=== PATIENT | male | born 1945 | race Caucasian/White ===

== ENCOUNTER 2020-03-25 15:56 | Inpatient (IN) | payer MEDICARE, OTHER ==
[2020-03-25] MEDS ORDERED: Acetaminophen 500 MG TAB ONE (16:18)
[2020-03-25 16:32] LABS: Mean Corpuscular HGB CONC 32.7 g/dL (32.0-36.0); Mean Corpuscular Hemoglobin 29.4 pg (27.0-31.0); Mean Corpuscular Volume 89.9 fL (78.0-98.0); Mean Platelet Volume 9.5 fL (7.4-10.4); Platelet Count 173 thou/uL (130-400); RBC Distribution Width 12.8 % (11.5-14.5); Red Blood Cell (RBC) Count 4.77 mill/uL (4.70-6.10); White Blood Cell (WBC) Count 9.2 thou/uL (4.8-10.8)
[2020-03-25 16:53] LABS: Band 21 % (5-11); Lymphocytes 4 % (21-51); MDiff Complete? YES; Monocytes 1 % (0-10); Neutrophil 74 % (42-75); Platelet Morphology Comment Appears Adequate; Polychromasia SLIGHT = 2-3 cells (100X) (0-2/hpf)
--- NOTE | 2020-03-25 17:02 | RAD ---
CHEST 1 VIEW PORTABLE: Date: 03/25/2020 HISTORY: Chest pain. FINDINGS: Heart size is within normal limits. The lungs are clear. No confluent pneumonia, overt edema, or pleu ral effusion. IMPRESSION: No significant acute intrathoracic disease. POS: RRE
[2020-03-25 17:16] LABS: Bacteria/HPF 4+ HPF (None Seen); Bilirubin Negative (Negative); Blood, Urine Negative (Negative); Clarity Clear (Clear); Glucose, Urine (Dipstick) Normal (Negative); Ketone, Urine Negative (Negative); Leukocyte 75 Leu/uL (Negative); Nitrite Negative (Negative); Protein, Urine (Dipstick) Negative (Neg-Trace); Specific Gravity, Urine 1.016 (1.002-1.036); Squamous Epithelial 0-3 HPF (0-3); pH, Urine 6.5 (5.0-9.0)
[2020-03-25 17:22] LABS: ALT (SGPT) 23 U/L (8-55); AST (SGOT) 22 U/L (5-34); Albumin 4.2 g/dL (3.4-4.8); Alkaline Phosphatase 91 U/L (40-110); Anion Gap 12 mmol/L (10-20); BUN (Urea Nitrogen) 14 mg/dL (8.4-25.7); Bilirubin, Total 0.5 mg/dL (0.2-1.2); Calc. Creatinine Clearance 0 mL/min (70-130); Calcium 9.1 mg/dL (7.8-10.44); Carbon Dioxide 25 mmol/L (23-31); Chloride 104 mmol/L (98-107); Estimated GFR-MDRD 45; Globulin 3.5 g/dL (2.4-3.5); Glucose 119 mg/dL (83-110); Potassium 3.8 mmol/L (3.5-5.1); Protein, Total 7.7 g/dL (5.8-8.1); Sodium 137 mmol/L (136-145)
[2020-03-25] MEDS ORDERED: cefTRIAXone\\ROCEPHIN 2 GM VIAL ONE (17:30)
[2020-03-25 17:56] LABS: SARS-CoV-2 NAA Rapid Test Not Detected (NotDetected)
--- NOTE | 2020-03-25 18:38 | PDOC.FPRHP ---
- History of Present Illness Chief Complaint: AMS, fever/chills History of Present Illness: Jarod is a 74M brought by EMS after a family called them allegedly because he was confused. According to Jarod, his sister called them because he was unbalanced when he stood up. He is always unbalanced d/t L hip problems and denies this time being any different. He denies lightheadedness or syncope. Per the patient he noticed a chill this morning d/t his sister "keeping the house cold". He was unaware he had a fever, he denies chills prior to today and denies any other sx. He was febrile, tachycardiac, tachypneic and had 21% bands on CBC so he meets sepsis criteria. UA on admission showed leuks, bacteria, and WBCs/RBCs, so it is suspected UTI is the cause of the sepsis. He denies dysuria/ hematuria/foul odor/abnormal appearance of urine. He endorses polyuria but denies polydipsia. He has never had a UTI before. He is not ttp of abdomen/ suprapubic region, no CVA tenderness, denies back pain. Cr was 1.5 and we have no baseline. BUN was 14 so it appears the KENYA is not pre-renal or acute. LA of 3.4. Vitals improved with 3L bolus of fluids he was given in the ED. He was given 2g Rocephin in the ED. He last saw a doctor 15 yrs ago. He denies any PMH. EKG showed sinus tachy with QTc prolongation and T wave inversion in V1 only. He appears to have limited health literacy and is slow in speech, unsure if this is his baseline. A&O x3 - Allergies/Adverse Reactions Allergies Allergy/AdvReac Type Severity Reaction Status Date / Time Penicillins Allergy Verified 03/25/20 21:07 - History PMHx: Denies PSHx: Denies FHx: Mom DM, older bro colon cancer in 60s. No colonoscopy Social: chewed tobacco for a few yrs last about 11 yrs. Denies EtOH/drugs. - Review of Systems General: reports: fever/chills. denies: fatigue Eyes: denies: vision changes ENT: denies: nasal congestion Respiratory: denies: cough, shortness of breath Cardiovascular: denies: chest pain, palpitation, edema Gastrointestinal: denies: vomiting, diarrhea, abdominal pain Genitourinary: reports: polyuria. denies: dysuria Skin: denies: rashes, lesions Musculoskeletal: denies: pain Neurological: denies: syncope, weakness - Vital signs BP: 178/100, MAP: 126, Pulse: 129, Resp: 40, Temp: 102.2 (Oral), Pain: 0, O2 sat : 99 on (Room Air), Time: 03/25/2020 16:01. BP: 144/72, MAP: 96, Pulse: 112, Resp: 24, Temp: 100.7 (Oral), Pain: 0, O2 sat: 97 on (Room Air), Time: 03/25/2020 18:22 Max T 103.1 - Physical Exam Constitutional: NAD, awake, alert and oriented, well developed HEENT: normocephalic and atraumatic, EOMI, grossly normal vision, grossly normal hearing Neck: supple, FROM Chest: no lesions Heart: RRR, normal S1/S2, no edema Lungs: CTAB, no respiratory distress Abdomen: soft, non-tender, bowel sounds present, no masses/distention Musculoskeletal: normal structure, normal tone, ROM grossly normal Neurological: no focal deficit Heme/Lymphatic: no unusual bruising or bleeding Psychiatric: normal mood and affect -Psychiatric: Slow in speech and poor health literacy FMR H&P: Results - Labs Result Diagrams: 03/26/20 05:03 03/25/20 16:49 Lab results: WBC 9.2 thou/uL (4.8-10.8) 03/25/20 16:07 Hgb 14.0 g/dL (14.0-18.0) 03/25/20 16:07 Hct 42.9 % (42.0-52.0) 03/25/20 16:07 MCV 89.9 fL (78.0-98.0) 03/25/20 16:07 Plt Count 173 thou/uL (130-400) 03/25/20 16:07 Band Neuts % (Manual) 21 % (5-11) H 03/25/20 16:07 Sodium 137 mmol/L (136-145) 03/25/20 16:49 Potassium 3.8 mmol/L (3.5-5.1) 03/25/20 16:49 Chloride 104 mmol/L (98-107) 03/25/20 16:49 Carbon Dioxide 25 mmol/L (23-31) 03/25/20 16:49 BUN 14 mg/dL (8.4-25.7) 03/25/20 16:49 Creatinine 1.54 mg/dL (0.7-1.3) H 03/25/20 16:49 Glucose 119 mg/dL (83-110) H 03/25/20 16:49 Lactic Acid 3.4 mmol/L (0.5-2.2) H 03/25/20 16:07 Calcium 9.1 mg/dL (7.8-10.44) 03/25/20 16:49 Total Bilirubin 0.5 mg/dL (0.2-1.2) 03/25/20 16:49 AST 22 U/L (5-34) 03/25/20 16:49 ALT 23 U/L (8-55) 03/25/20 16:49 Alkaline Phosphatase 91 U/L (40-110) 03/25/20 16:49 Serum Total Protein 7.7 g/dL (5.8-8.1) 03/25/20 16:49 Albumin 4.2 g/dL (3.4-4.8) 03/25/20 16:49 Urine Ketones Negative mg/dL (Negative) 03/25/20 16:21 Urine Blood Negative (Negative) 03/25/20 16:21 Urine Nitrite Negative (Negative) 03/25/20 16:21 Ur Leukocyte Esterase 75 Joe/uL (Negative) A 03/25/20 16:21 Urine RBC 4-6 HPF (0-3) A 03/25/20 16:21 Urine WBC 11-20 HPF (0-3) A 03/25/20 16:21 Ur Squamous Epith Cells 0-3 HPF (0-3) 03/25/20 16:21 Urine Bacteria 4+ HPF (None Seen) A 03/25/20 16:21 FMR H&P: A/P - Plan Sepsis 2/2 UTI - Meets sepsis criteria: AMS, T 103.1, P 129, RR 40, normal WBCs but 21% bands - SBP 177 - not septic shock - UA pos leuks, bacteria, WBCs/RBCs - Trop 0.027. Will repeat - LA 3.4. Will repeat - UCx, BCx ordered - Received 2g Rocephin and 30mL/kg bolus in ED. Continue Rocephin SL for now and place on heart healthy diet - Prostate smooth and on-tender on PRIYA - Postvoid residual volume 87mL - Renal US ordered to look for hydronephrosis/stones - Lipid panel, A1c, procal ordered - Repeat CBC, BMP in am - Consider CT abdomen/pelvis if cause remains unknown KENYA vs. CKD - Cr 1.5, baseline unknown - BUN 14 - likely chronic - Received 30mL/kg bolus in ED. SL for now - BMP in am HTN - SBP 177 on admission - Down to 144 with fluid bolus - Continue to monitor Disposition: inpt med DVT Ppx: Lovenox 30mg Diet: Heart healthy Abx: Rocephin 2g Code: Full FMR H&P: Upper Level - Plan Date/Time: 03/25/20 6816 I, [Cassidy Givens], have evaluated this patient and agree with findings/plan as outlined by kinesiology internship resident. Pertinent changes/additions are listed here. 74 yo M with no PMH admitted for sepsis 2/2 UTI. Brought in by EMS after family said he was confused & sick. Patient denies dysuria but reports fevers, chills. No n/v/d. Producing urine. Was found to be tachycardic, tachypneic (but non hypoxic) and febrile to 103F in the ER. Given 3L NS and 2g rocephin and 1g Tylenol. Patient reports aside from feeling "small chills" he is doing well. No pain. No prior hx of UTIs. No recent urinary symptoms or incontinence but does report some hesitancy. AVSS PE: Gen- NAD, resting comfortably CV- tachycardic, no murmurs Resp- CTAB, no respiratory distress Back- No CVA tenderness Extrem- Cap refill <2 seconds, good turgor Rectal- No protate tenderness on palpation WBC 9.2, 21% bands UA: +LE, bacteria, WBCs #. Sepsis 2/2 UTI -Tachycardic, febrile, tachypneic- UA: +LE, bacteria, WBCs -s/p 30cc/kg bolus and 2g rocephin in ER -Continue 2grocephin, pending BCx/UCx -BPs stable, clinically appears, well-admit to medical/inpt -Consider CT Abd/Pelvis if clinically and renally not improving tomorrow -Supect underlying BPH, will check PVR -Not circumcised but no prior hx of UTIs #. Complicated UTI -See above #. KENYA vs. CKD -Cr 1.52, gfr 45, BUN/Cr <20 -Not anuric, likely from UTI -S/P fluids- Repeat BMP with AM labs #. Lactic acidosis -3.4, given 3L fluids, repeat #. Indeterminate troponin -0.027, EKG with no acute changes, no chest pain -Trend troponins Admit: medical/Inpatient DVT ppx: Lovenox GI ppx: not indicated Abx: Rocephin 2g Fluids: LR 140 Addendum - Attending - Attending Attestation Date/Time: 03/26/20 1975 I personally evaluated the patient and discussed the management with Dr. Caitlyn Levin last night. I agree with the History, Examination, Assessment and Plan documented above with any addition or exceptions noted below.
[2020-03-25 19:11] LABS: Lactic Acid 2.2 mmol/L (0.5-2.2)
[2020-03-25 20:59] VITALS: BMI 30.4
[2020-03-25] MEDS ORDERED: Acetaminophen 325 MG TAB PO PRN (21:01)
[2020-03-25 23:13] LABS: Hemoglobin A1c 5.4 % (4.0-6.0)
[2020-03-26] MEDS: Lactated Ringer's 1,000 ML IV SCH ×2 (00:19→08:37)
[2020-03-26 05:57] LABS: #Lymphocytes 1.5 thou/uL (1.20-3.40); #Monocytes 1.1 thou/uL (0.11-0.59); #Neutrophils 12.5 thou/uL (1.40-6.50); %Basophils 0.2 % (0.0-1.0); %Eosinophils 0.3 % (0.0-10.0); %Lymphocytes 9.7 % (21.0-51.0); %Neutrophils 82.8 % (42.0-75.0); Hemoglobin 12.4 g/dL (14.0-18.0); Mean Corpuscular HGB CONC 33.1 g/dL (32.0-36.0); Mean Corpuscular Volume 90.7 fL (78.0-98.0); Mean Platelet Volume 8.6 fL (7.4-10.4); Platelet Count 194 thou/uL (130-400); RBC Distribution Width 12.6 % (11.5-14.5); Red Blood Cell (RBC) Count 4.12 mill/uL (4.70-6.10); White Blood Cell (WBC) Count 15.1 thou/uL (4.8-10.8)
[2020-03-26 07:00] LABS: Anion Gap 10 mmol/L (10-20); BUN (Urea Nitrogen) 12 mg/dL (8.4-25.7); Calc. Creatinine Clearance 74 mL/min (70-130); Calcium 8.5 mg/dL (7.8-10.44); Carbon Dioxide 23 mmol/L (23-31); Chloride 106 mmol/L (98-107); Estimated GFR-MDRD 55; Glucose 85 mg/dL (83-110); Potassium 3.8 mmol/L (3.5-5.1); Sodium 135 mmol/L (136-145)
--- NOTE | 2020-03-26 07:43 | ULT ---
RENAL ULTRASOUND: INDICATION: History of urinary tract infection. COMPARISON: None. FINDINGS: The right kidney measured 9.6 x 4.2 x 5 cm. The left kidney measured 9.6 x 5.7 x 5.7 cm. Prevoid bl adder volume was 324 cc. No foal renal lesion or hydronephrosis is evident. IMPRESSION: No focal renal lesion or hydronephrosis. POS: BH
[2020-03-26] MEDS: Enoxaparin Sodium 30 MG/0.3 ML SYRINGE SC SCH ×2 (08:33→20:21)
--- NOTE | 2020-03-26 08:34 | PDOC.FM ---
- Subjective Subjective: No acute overnight events. Feeling improved since abx and fluid resuscitation. Denies any chest pain, SOB, abdominal pain, urinary sx. States before admission he was only having some chills and some strong urine. Also denies headache, weakness. - Objective Vital Signs & Weight: Vital Signs (12 hours) Temp Pulse Resp BP Pulse Ox 03/26/20 07:44 99.2 F 88 20 151/76 H 97 03/26/20 04:50 99.4 F 86 18 150/78 H 97 03/25/20 23:28 99.1 F 95 18 156/80 H 98 03/25/20 21:05 99 03/25/20 20:45 99.3 F 99 18 135/77 99 Weight Weight 101.877 kg I&O: 03/25/20 03/26/20 03/27/20 06:59 06:59 06:59 Intake Total 850 Output Total 700 Balance 150 Result Diagrams: 03/26/20 05:03 03/26/20 05:03 Phys Exam - Physical Examination Constitutional: NAD HEENT: moist MMs Neck: supple, full ROM Respiratory: no wheezing, no rales, no rhonchi, clear to auscultation bilateral Cardiovascular: RRR, no significant murmur Gastrointestinal: soft, non-tender, no distention, positive bowel sounds Musculoskeletal: no edema, pulses present Neurological: non-focal, moves all 4 limbs Psychiatric: normal affect, A&O x 3 Skin: no rash, cap refill <2 seconds Dx/Plan - Plan Plan: Sepsis 2/2 UTI, improving - Meets sepsis criteria: AMS, T 103.1, P 129, RR 40, normal WBCs but 21% bands upon admission - Now clinically stable with leukocytosis although other vitals have improved and he is no longer meeting SIRS criteria after fluid resuscitation and antibiotics overnight - Lactic acid trending down to 2.2 - UA pos leuks, bacteria, WBCs/RBCs - Received 2g Rocephin and 30mL/kg bolus in ED. - Renal US ordered to look for hydronephrosis/stones, unremarkable - Will continue rocephin today - F/u urine cx, de-escalate abx pending results - likely discharge to home tomorrow if able to switch to PO therapy KENYA vs. CKD - Cr 1.5 on admission, downtrending this AM - BUN 14 - likely chronic - Received 30mL/kg bolus in ED. SL for now - BMP in am HTN - SBP 177 on admission - Down to 144 with fluid bolus - Continue to monitor Hyperlipidemia Lipid panel performed on admission, elevated cholesterol - will discuss statin with patient - would benefit from establishing care with a PCP for long-term therapy, will discuss establishing PCP upon discharge Disposition: inpt med DVT Ppx: Lovenox 30mg Diet: Heart healthy Abx: Rocephin 2g Code: Full Addendum - Attending - Attending Attestation Date/Time: 03/26/20 2446 I personally evaluated the patient and discussed the management with the team. I agree with the History, Examination, Assessment and Plan documented above with any addition or exceptions noted below. Feeling better this AM. Nontoxic appearing. No CVAT. Await micro and continue rocephin as he has clinically improved.
[2020-03-26] MEDS ORDERED: cefTRIAXone\\ROCEPHIN 2 GM in Sodium Chloride 0.9% 100 ML IVPB SCH (18:00)
--- NOTE | 2020-03-27 06:51 | PDOC.FM ---
- Subjective Subjective: No acute events overnight. No new complaints. Denies chest pain, SOB, abdominal pain, n/v/d/c, dysuria, edema. Feels he is ready to go home. - Objective Vital Signs & Weight: Vital Signs (12 hours) Temp Pulse Resp BP Pulse Ox 03/26/20 20:28 98.6 F 74 17 155/75 H 97 Weight Weight 101.877 kg I&O: 03/25/20 03/26/20 03/27/20 06:59 06:59 06:59 Intake Total 850 Output Total 700 Balance 150 Result Diagrams: 03/26/20 05:03 03/26/20 05:03 Phys Exam - Physical Examination Constitutional: NAD HEENT: moist MMs, sclera anicteric Neck: supple Respiratory: no wheezing, no rales, no rhonchi, clear to auscultation bilateral Cardiovascular: RRR, no significant murmur Gastrointestinal: soft, non-tender, no distention, positive bowel sounds Musculoskeletal: no edema, pulses present Neurological: moves all 4 limbs Psychiatric: normal affect, A&O x 3 Skin: no rash, cap refill <2 seconds Dx/Plan - Plan Plan: Urinary Tract Infection Previously was meeting SIRS criteria due to fever, leukocytosis, mental status changes. Now stable, no longer meeting SIRS criteria s/p fluid resuscitation and treatment with antibiotics. No obvious inciting cause for UTI although being uncircumcised may be a contributing factor. - s/p rocephin x 2 days - PCN allergic - transition to PO bactrim to be completed in outpatient setting KENYA with possible CKD Baseline unclear, Cr 1.5 on admission but trending downward. With BUN at 14, likely some component of CKD. - s/p fluid resuscitation - recommend establishing care with PCP to f/u possible CKD Elevated blood pressure Has had elevated blood pressure with SBP in the 150-170s during this admission. No formal diagnosis of hypertension prior to this admission. - recommend establishing care with PCP to f/u HTN Hyperlipidemia Lipid panel performed on admission, elevated cholesterol. ASCVD risk 17.8%, moderate to high intensity statin recommended. - recommend establishing care with PCP to f/u cholesterol Disposition: likely DC to home DVT Ppx: Lovenox 30mg Diet: Heart healthy Abx: Rocephin 2g Code: Full Addendum - Attending - Attending Attestation Date/Time: 03/27/20 7479 I personally evaluated the patient and discussed the management with Dr. Hinkle. I agree with the History, Examination, Assessment and Plan documented above with any addition or exceptions noted below. Doing very well, plan for dc with appropriate antimicrobial coverage.
[2020-03-27] MEDS: Enoxaparin Sodium 30 MG/0.3 ML SYRINGE SC SCH (07:51)
[2020-03-27 11:07] VITALS: BP 156/84; TEMP 98.3
--- NOTE | 2020-03-28 13:45 | DIS ---
DATE OF ADMISSION: 03/25/2020 DATE OF DISCHARGE: 03/27/2020 RESIDENT: Angelica Hinkle DO ADMITTING ATTENDING: Dr. Morfin. DISCHARGE ATTENDING: Dr. Willis. CONSULTS: None. PROCEDURES: None. PRIMARY DIAGNOSIS: Sepsis secondary to urinary tract infection. SECONDARY DIAGNOSES: Acute kidney injury and hypertension. DISCHARGE MEDICATIONS: Keflex 500 mg p.o. q.12 hours to be completed 5 days after discharge. DISCONTINUED MEDICATIONS: None. HOSPITAL COURSE: A 74-year-old male brought in by EMS after sister reported he was confused and unbalanced. Workup in the ED revealed he had UTI and sepsis with fever, tachycardia, and normal white blood cells with 21% bands. The next morning, he did develop a leukocytosis. He was treated with Rocephin and received a 30 mL/kg bolus. Prostate exam was smooth and nontender, low suspicion for prostatitis. Renal ultrasound was unremarkable. He also had an indeterminate troponin at 0.027, which was repeated and remained stable. Lipid panel and A1c checked for risk stratification due to indeterminate troponin. ASCVD risk score 17.8%. Recommended followup with PCP for moderate to high intensity statin. He rapidly improved after treatment with fluids and antibiotics with stable vital signs and asymptomatic by the morning after admission. His urine culture revealed E coli. He was discharged to home with a prescription for Keflex. He should follow up with PCP for management of his lipids and hypertension. DISPOSITION: Stable. DISCHARGE INSTRUCTIONS: 1. Location: Home. 2. Diet: Heart healthy. 3. Activity: As tolerated. 4. Followup: Follow up with PCP within 1 week. Job ID: [id number]
--- NOTE | 2020-03-29 04:52 | PQF ---
CLINICAL DOCUMENTATION CLARIFICATION FORM: Dear : Rick Willis Date / Time: 03/29/20 6621 Please exercise your independent, professional judgment in responding to the clarification form. Clinical indicators are provided on the bottom of this form for your review Please check appropriate box(es): [ ] Encephalopathy: Etiology: [ ] Metabolic [ ] Toxic [ ] Septic [ ] Unspecified [ ] Other (please specify) [ ] Transient Alteration of Awareness [ ] Other diagnosis [ ] Unable to determine In addition, please specify: Present on Admission (POA): [ ] Yes [ ] No [ ] Unable to determine Physician Signature: Date/Time: For continuity of documentation, please document condition throughout progress notes and discharge summary. Thank You. To be completed by CDI/Coding staff for physician review: Present Clinical Indicators - Signs / Symptoms / Labs Results and Location in Medical Record [X] WBC 9.2; 15.1, Plt count 173, Neutrophils 82.8, Band 21 Laboratory 03/25 [X] Blood culture: No growth at 48 hrs Microbiology 03/25 [X] Urine Culture: Escheriachia coli Microbiology 03/25 [X] Temp 103.1, Pulse 129, Resp 40, BP 144/72 Vital signs 03/25 [X] He was confused H&P p1 03/25 Dr Whitaker [X] Sepsis 2/2 UTI H&P p3 03/25 Dr Whitaker [X] Meets sepsis criteria H&P p3 03/25 Dr Whitaker [X] Altered Mental status H&P p3 03/25 Dr Whitaker Present Risk Factors Results and Location in Medical Record [X] 74 year-old Male H&P p1 03/25 Dr Whitaker [X] UTI H&P p1 03/25 Dr Whitaker [X] KENYA vs CKD H&P p4 03/25 Dr Whitaker [X] HTN H&P p4 03/25 Dr Whitaker [X] Sepsis H&P p3 03/25 Dr Whitaker Present Treatments Results and Location in Medical Record [X] IV Lactated Ringers 1L OCT 14 [X] IV Rocephin 2 gm OCT 14 [X] Blood culture Microbiology 03/25 [X] Urine Culture Microbiology 03/25 CDS/Per Diem Nurse Signature: Anjelica Hooker Manuela Phone #: ext [phone] Date/Time: 03/29/20 0451 Send to admitting attending. This is a permanent part of the Medical Record [facility]
--- NOTE | 2020-03-29 16:38 | EKG ---
Test Reason : Blood Pressure : / mmHG Vent. Rate : 073 BPM Atrial Rate : 073 BPM P-R Int : 164 ms QRS Dur : 082 ms QT Int : 390 ms P-R-T Axes : 064 047 011 degrees QTc Int : 429 ms Normal sinus rhythm Nonspecific ST and T wave abnormality Abnormal ECG When compared with ECG of 25-MAR-2020 16:05, (Unconfirmed) Vent. rate has decreased BY [address] elevation now present in Anterior leads Nonspecific T wave abnormality now evident in Inferior leads Nonspecific T wave abnormality, worse in Lateral leads Confirmed by DR. Travon CARRENO ([id number]) on 03/29/2020 4:37:51 PM Referred By: SHAWN r Confirmed By:DR. Travon CARRENO
--- NOTE | 2020-03-31 19:23 | PQF ---
CLINICAL DOCUMENTATION CLARIFICATION FORM: Dear : Ludin Morfin Date / Time: 03/31/201920 Please exercise your independent, professional judgment in responding to the clarification form. Clinical indicators are provided on the bottom of this form for your review Please check appropriate box(es): [ X ] Encephalopathy: Etiology: [ ] Metabolic [ ] Toxic [ X ] Septic [ ] Unspecified [ ] Other (please specify) [ ] Transient Alteration of Awareness [ ] Other diagnosis [ ] Unable to determine In addition, please specify: Present on Admission (POA): [ X ] Yes [ ] No [ ] Unable to determine Physician Signature: Date/Time: For continuity of documentation, please document condition throughout progress notes and discharge summary. Thank You. To be completed by CDI/Coding staff for physician review: Present Clinical Indicators - Signs / Symptoms / Labs Results and Location in Medical Record [X] WBC 9.2; 15.1, Plt count 173, Neutrophils 82.8, Band 21 Laboratory 03/25 [X] Blood culture: No growth at 48 hrs Microbiology 03/25 [X] Urine Culture: Escheri[place]ia coli Microbiology 03/25 [X] Temp 103.1, Pulse 129, Resp 40, BP 144/72 Vital signs 03/25 [X] He was confused H&P p1 03/25 Dr Whitaker [X] Sepsis 2/2 UTI H&P p3 03/25 Dr Whitaker [X] Meets sepsis criteria H&P p3 03/25 Dr Whitaker [X] Altered Mental status H&P p3 03/25 Dr Whitaker Present Risk Factors Results and Location in Medical Record [X] 74 year-old Male H&P p1 03/25 Dr Whitaker [X] UTI H&P p1 03/25 Dr Whitaker [X] KENYA vs CKD H&P p4 03/25 Dr Whitaker [X] HTN H&P p4 03/25 Dr Whitaker [X] Sepsis H&P p3 03/25 Dr Whitaker Present Treatments Results and Location in Medical Record [X] IV Lactated Ringers 1L OCT 14 [X] IV Rocephin 2 gm OCT 14 [X] Blood culture Microbiology 03/25 [X] Urine Culture Microbiology 03/25 CDS/Recreation Coordinator Signature: Anjelica Roy Phone #: ext [phone] Date/Time: 03/31/201920 This is a permanent part of the Medical Record [facility]
--- NOTE | 2020-04-03 15:17 | EKG ---
Test Reason : Blood Pressure : / mmHG Vent. Rate : 127 BPM Atrial Rate : 127 BPM P-R Int : 000 ms QRS Dur : 066 ms QT Int : 392 ms P-R-T Axes : 045 034 045 degrees QTc Int : 569 ms Sinus tachycardia Nonspecific T wave abnormality Abnormal ECG Confirmed by VIVIANE MOYA DO ([id number]), online content editor MONIQUE GARCIA ([id number] on 04/03/2020 3:16:40 PM Referred By: Confirmed By:VIVIANE MOYA DO
== END 2020-03-27 13:44 | disposition home or self-care (01) | DRG 871 ==
LOC: ERS 15:56 → T4-A 19:05
PROVIDERS: ADMIT Family Medicine; ATTEND Family Medicine
DX: A41.9 Sepsis, unspecified organism (principal); G93.41 Metabolic encephalopathy; N39.0 Urinary tract infection, site not specified; N17.9 Acute kidney failure, unspecified; E87.2 Acidosis; R65.20 Severe sepsis without septic shock; R79.89 Other specified abnormal findings of blood chemistry; Z20.828 Contact with and (suspected) exposure to other viral communicable diseases; N18.9 Chronic kidney disease, unspecified; E78.5 Hyperlipidemia, unspecified; E78.00 Pure hypercholesterolemia, unspecified
CPT/HCPCS: 36415; 36416; 71045; 76770; 80048; 80053; 80061; 81003; 81015; 83036; 83605; 84145; 84484; 85025; 87040; 87077; 87086; 87186; 93005; 93010; 94760; 96361; 96365; J0696; J1650; J3490; U0002